=== PATIENT | male | born 1980 | race Caucasian/White ===

== ENCOUNTER 2022-10-29 07:10 | Emergency (ER) | payer OTHER, SELFPAY ==
[2022-10-29 07:16] VITALS: BP 126/61; PULSE 73; RESP 20; TEMP 36.2; O2SAT 96; BMI 28.8
--- NOTE | 2022-10-29 07:47 | ED.DENTAL ---
HPI - Dental/Oral General Chief complaint: Dental/Oral Stated complaint: Dental pain Time Seen by Provider: 10/29/22 07:26 Source: patient Mode of arrival: ambulatory Limitations: no limitations History of Present Illness MD Complaint: tooth pain Location: Tooth # (4) Onset (ago): week(s) Duration: constant Severity: moderate Relieving factors: nothing Exacerbating factors: chewing, cold and heat Context: history of dental caries Associated symptoms: gum swelling Treatment prior to arrival: none Related Data Previous Rx's Medication Instructions Recorded amoxicillin 500 mg capsule 500 mg PO BID 7 days #14 caps 10/29/22 ibuprofen 600 mg tablet 600 mg PO Q6H PRN pain #30 tabs 10/29/22 Allergies Allergy/AdvReac Type Severity Reaction Status Date / Time No Known Allergies Allergy Verified 10/29/22 07:18 Review of Systems Review of Systems: Constitutional : No Fever, No Chills ENT/Mouth : No swallowing difficulty, no change in voice, positive dental pain, positive jaw pain, no facial swelling Eyes: No Eye Pain, No Swelling Cardiovascular : No Chest Pain, No SOB Respiratory : No Cough, No Sputum Gastrointestinal : No Nausea, No Vomiting, No Diarrhea Genitourinary : No Dysuria Musculoskeletal : No Myalgias Skin : No rash Neuro : No Weakness, No Numbness, No Headache PMFSH Past Medical History Attestation statement: The following information was validated with the patient. Social History Social History (Updated 10/29/22 @ 07:50 by Luz Baca DO) Patient Tobacco Use Status: Tobacco use Unknown Advance Directives: No Advance Directives Information Provided: Yes Physical Exam Vital Signs: Vital Signs: Last Vital Signs Temp 97.1 F 10/29/22 07:16 Pulse 73 10/29/22 07:16 Resp 20 10/29/22 07:16 BP 126/61 10/29/22 07:16 Pulse Ox 96 10/29/22 07:16 O2 Del Method 10/29/22 07:16 BMI result Body Mass Index 28.8 Appearance: Alert. Oriented X3. No acute distress. Eyes: Pupils equal, round and reactive to light. ENT: Pharynx normal. R upper 4th tooth decay with mild gum swelling no fluctuant mass, no trismus, no sublingual no submandibular swelling, normal voice tolerating secretions. Neck: Normal inspection. Neck supple. CVS: Pulses normal. Respiratory: No respiratory distress. Abdomen: atraumatic Skin: Skin warm and dry. Normal skin color. Extremities: No lower extremity edema. Neuro: Oriented X 3. No motor deficit. No sensory deficit. Medical Decision Making Medical Decision Making [facility] Narrative: 42 yo male no sig PMH here with chronic dental decay now with increased pain and gum swelling no signs of deeper space infection or sublingual/submandibular swelling - not toxic appearing will start on motrin and amoxiciilin refer to dentist Differential Diagnosis decay, gingivitis, tooth infection Prescription Management I considered prescription management with: Antibiotic and Other Discharge Plan Discharge Clinical Impression: Toothache, Dental caries Patient Disposition: Home, Self-Care Instructions: Toothache (ED) Additional Instructions: return to ED for any worsening symptoms or concerns return for fevers, facial swelling, inability to open mouth take probiotics while on antibiotics follow up with dentist in a week Prescriptions: New amoxicillin 500 mg capsule 500 mg PO BID 7 Days Qty: 14 0RF ibuprofen 600 mg tablet 600 mg PO Q6H PRN (Reason: pain) Qty: 30 0RF Stand Alone Forms: Work/School Release
[2022-10-29] MEDS: Ibuprofen 600 MG TABLET PO (07:59)
[2022-10-29] MEDS: Amoxicillin 500 MG CAPSULE PO (07:59)
== END 2022-10-29 08:06 | disposition home or self-care (01) ==
PROVIDERS: Emergency Provider Emergency Medicine
DX: K02.9 Dental caries, unspecified (principal); K08.89 Other specified disorders of teeth and supporting structures
CPT/HCPCS: 99283

== ENCOUNTER 2024-05-07 13:04 | Emergency (ER) | payer OTHER, SELFPAY ==
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
[2024-05-07 13:25] VITALS: BP 127/92; PULSE 64; O2SAT 98
[2024-05-07 13:30] VITALS: BP 124/92; PULSE 64; RESP 16; TEMP -17.7; TEMP 0; O2SAT 98; BMI 39.2
[2024-05-07] MEDS: oxyCODONE HCl Immed Release 5 MG TABLET 10 MG PO (15:44)
[2024-05-07 16:35] VITALS: BP 124/92; PULSE 64; RESP 16; TEMP -17.7; TEMP 0; O2SAT 98
== END 2024-05-07 16:35 | disposition home or self-care (01) ==
PROVIDERS: Emergency Provider Emergency Medicine
DX: Z04.1 Encounter for examination and observation following transport accident (principal); M79.10 Myalgia, unspecified site
CPT/HCPCS: 70450; 72125; 73080; 73502; 73590; 99283; 99284